=== PATIENT | female | born 1985 | race Caucasian/White ===

== ENCOUNTER 2022-10-28 08:27 | Emergency (ER) | payer BC, SELFPAY ==
[2022-10-28 08:29] VITALS: BP 160/93; PULSE 98; RESP 14; TEMP 36.4; O2SAT 100; BMI 36.9
--- NOTE | 2022-10-28 09:11 | EX.ED.VIS.UR ---
HPI HPI - URI History of Present Illness Chief Complaint: Cold Sx Narrative Narrative: Female presenting with burning in her chest, cough, congestion, rhinorrhea, fullness in her ears. Patient states that started yesterday. No fevers or chills. No body aches. No nausea or vomiting. Patient concerned because he has a history of bronchitis. Patient states she usually goes to the urgent care and gets prescribed antibiotics, prednisone, albuterol. ROS ROS ED Review of Systems ROS Unobtainable: due to encephalopathy Constitutional Constitutional ED: Denies chills or fever(s) ENT ENT ED: Reports rhinorrhea and sore throat Cardiovascular Cardiovascular: Denies chest pain or palpitations Respiratory/Chest Respiratory/Chest: Reports cough; Denies dyspnea or dyspnea on exertion Gastrointestinal Gastrointestinal: Denies nausea or vomiting Genitourinary Genitourinary ED: Denies dysuria Musculoskeletal Musculoskeletal: Denies arthralgias or back pain Integumentary Denies abscess Neurologic Neurologic: Reports headache(s); Denies paresthesias PFSH PFSH Home Medications albuterol sulfate 90 mcg/actuation aerosol inhaler (Ventolin HFA) 1 - 2 puff inhalation Q6H #6.7 grams 10/28/22 [Rx Last Taken Unknown] prednisone 50 mg tablet 50 mg PO DAILY 5 days #5 tabs 10/28/22 [Rx Last Taken Unknown] Allergy/AdvReac Type Severity Reaction Status Date / Time iodine Allergy Severe Anaphylaxis Verified 10/28/22 08:31 shellfish derived Allergy Severe Anaphylaxis Verified 10/28/22 08:31 Penicillins Allergy Mild Hives Verified 10/28/22 08:31 Social History Smoking Status: Never smoker EXAM Physical Exam Const Vital Signs: 10/28/22 08:29 Temperature 97.6 F L Temperature Source Temporal Pulse Rate 98 Respiratory Rate 14 Blood Pressure 160/93 H Blood Pressure Mean 115 Pulse Ox 100 Oxygen Delivery Method Room Air Positive well nourished General Appearance ED: NAD HEENT Reports moist mucous membranes normocephalic and atraumatic Eyes PERRL and EOMs intact bilaterally Neck no lymphadenopathy Resp normal respiratory effort and clear to auscultation bilaterally Auscultation: Negative for rales, rhonchi or wheezes Cardio Rate: regular rate Rhythm: regular rhythm Extremity normal to inspection Neuro oriented x3 and CN's II-XII intact bilaterally Sensorium / Orientation: alert Motor Exam: strength 5/5 throughout Psych mental status grossly normal MDM MDM MDM Narrative Medical decision making narrative: -year-old female with history of bronchitis presenting with viral symptoms for the last 24 hours. Patient denies fevers or chills but has congestion, headache, cough, rhinorrhea. Patient's lungs are clear to auscultation on examination. No wheezing or stridor. HEENT exam is unremarkable. Viral testing was offered, but patient was counseled this likely would not change the course of her illness and she has mild symptoms and likely conservative care would be helpful. I do not believe she needs a chest x-ray. Patient concerned that she might have wheezing at some point that she had this before so I did prescribe an albuterol inhaler and a [id number] prescription for prednisone. I do not think she needs antibiotics. Return precautions were discussed. Impression 1. Viral syndrome Discharge Plan Triage Chief Complaint: Cold Sx ED Provider: Rodríguez Trevizo Dx/Rx/DC Orders Instructions: ED Viral Syndrome (Adult) Prescriptions: New albuterol sulfate [Ventolin HFA] 90 mcg/actuation HFA aerosol inhaler 1 - 2 puff inhalation Q6H Qty: 6.7 0RF prednisone 50 mg tablet 50 mg PO DAILY 5 Days Qty: 5 0RF Primary Care Provider: Talya Ness NP Referrals: Talya Ness NP, [facility] [Primary Care Provider] - Disposition Disposition: Home, Self Care
== END 2022-10-28 09:16 | disposition home or self-care (01) ==
PROVIDERS: Emergency Provider Student in an Organized Health Care Education/Training Program; PCP Registered Nurse; Visit Provider Student in an Organized Health Care Education/Training Program
DX: B34.9 Viral infection, unspecified (principal)
CPT/HCPCS: 99282